=== PATIENT | female | born 1985 | race Caucasian/White ===

== ENCOUNTER → 2016-09-25 | Outpatient (CLI) | payer BC ==
--- NOTE | 2016-09-25 13:07 | RAD ---
Indication swelling. The patient is recently and is attempting to breast-feed. In addition to images submitted by the technologist real-time examination of the right breast was performed by me. There is considerable soft tissue swelling involving the right breast extending from approximately the 5:00 position to the 12:00 position. An underlying abscess is not seen. IMPRESSION: Soft tissue swelling. No definite underlying abscess seen
== END | disposition home or self-care (01) ==
LOC: US 10:56
PROVIDERS: ATTEND Nurse Practitioner Women's Health
DX: C50.911 Malignant neoplasm of unspecified site of right female breast (principal); N63 Unspecified lump in breast
CPT/HCPCS: 76641